=== PATIENT | female | born 1965 | race Caucasian/White ===

== ENCOUNTER → 2017-02-25 | Outpatient (CLI) | payer OTHER ==
[2017-02-25 12:20] LABS: HEMOGLOBIN 11.1 gm/dl (12.3-15.3); RED BLOOD COUNT 4.08 M/UL (4.00-5.10); WHITE BLOOD COUNT 5.4 K/UL (4.5-11.0)
== END ==
LOC: LAB 11:18
PROVIDERS: Internal Medicine Pulmonary Disease
DX: J45.40 Moderate persistent asthma, uncomplicated (principal)
CPT/HCPCS: 36415; 82785; 85025

== ENCOUNTER → 2017-02-25 | Outpatient (CLI) | payer OTHER | LOC: HEART 5 10:37 | DX: J45.40 Moderate persistent asthma, uncomplicated (principal) | CPT/HCPCS: 94010 ==

== ENCOUNTER → 2020-10-21 | Outpatient (CLI) | payer OTHER ==
[~2020-10-21] MED LIST: CYANOCOBAL1000 MCG/1 INJ; ELAVIL 10 MG TA10 MG PO; FLONASE ALLER15.8 ML; GLUCOPHAGE1000 MG PO; IPRAT-ALBUT 0.5-3 ML INH; ISORDIL TAB 3030 MG PO; LEVOCETIRIZINE D5 MG PO; MACROBID 100 M100 MG PO; MACRODANTIN100 MG PO; MUCINEX DM ER1 EAC1 PO; NORCO 5-325 TA1 EACH PO; RANEXA1000 MG PO; REGLAN5 MG PO; SINGULAIR10 MG PO; TOLTERODINE TART4 MG PO; TOPROL XL25 MG PO; TYLENOL 500 MG500 MG PO; VENTOLIN HFA 66.7 GM INH; VITAMIN D350 MC1 PO; WIXELA 250-501 EACH INH; XARELTO20 MG PO; ZANTAC150 MG PO; ZESTRIL30 MG PO; ZOCOR20 MG PO
[2020-10-21 12:36] LABS: HEMOGLOBIN 11.1 gm/dl (12.3-15.3); RED BLOOD COUNT 3.71 M/UL (4.00-5.10); WHITE BLOOD COUNT 4.7 K/UL (4.5-11.0)
== END ==
LOC: LAB 12:01
PROVIDERS: Nurse Practitioner Family
DX: M79.89 Other specified soft tissue disorders (principal)
CPT/HCPCS: 36415; 85025; 85379; 85610; 85730

== ENCOUNTER → 2020-10-25 | Outpatient (CLI) | payer OTHER | LOC: KOH-I 12:48 | DX: M79.662 Pain in left lower leg (principal); M79.89 Other specified soft tissue disorders | CPT/HCPCS: 93971 ==

== ENCOUNTER → 2021-02-28 | Outpatient (CLI) | payer OTHER | LOC: KOH-I 11:22 | DX: R79.89 Other specified abnormal findings of blood chemistry (principal) | CPT/HCPCS: 76775 ==

== ENCOUNTER → 2021-03-22 | Outpatient (CLI) | payer OTHER | LOC: US 13:51 | DX: R60.0 Localized edema (principal); M79.662 Pain in left lower leg | CPT/HCPCS: 93971 ==

== ENCOUNTER 2021-08-05 04:39 | Inpatient (IN) | payer OTHER ==
[~2021-08-05] VITALS: Ht 172.7 cm; Wt 144.7 kg
[~2021-08-05 04:39] MED LIST changes: +AMITRIPTYLINE H10 MG PO; -ELAVIL 10 MG TA10 MG PO; +ZESTRIL20 MG PO; -ZESTRIL30 MG PO
[2021-08-05 07:07] LABS: HEMOGLOBIN 14.2 gm/dl (12.3-15.3); RED BLOOD COUNT 5.01 M/UL (4.00-5.10); WHITE BLOOD COUNT 8.8 K/UL (4.5-11.0)
[2021-08-05 08:54] LABS: BUN/CREATININE RATIO 14 (0-10)
[2021-08-05] MEDS ORDERED: LORATADINE10 MG PO (11:57)
[2021-08-05] MEDS ORDERED: NITROFURANTOIN100 MG PO (11:58)
[2021-08-05] MEDS ORDERED: PANTOPRAZOLE SO20 MG PO (11:58)
[2021-08-05] MEDS ORDERED: NYSTATIN15 GM TP (11:59)
[2021-08-05] MEDS ORDERED: MECLIZINE HCL25 MG PO (11:59)
[2021-08-05] MEDS ORDERED: FUROSEMIDE20 MG PO (12:04)
[2021-08-05] MEDS ORDERED: BIOTIN2500 MCG PO (12:05)
[2021-08-05] MEDS ORDERED: POTASSIUM CHLO10 MEQ PO (12:05)
[2021-08-05] MEDS ORDERED: SIMETHICONE125 MG PO (12:06)
[2021-08-05] MEDS ORDERED: MUCINEX1200 MG PO (12:06)
--- NOTE | 2021-08-05 23:07 | NUR ---
2230:CALLED RADIOLOGY ABOUT STAT CHEST XRAY TO CONFIRM NG TUBE PLACEMENT. SHEET SORTER VERIFIED STAT ORDER AND STATED THEY WERE RUNNING BEHIND AND SHE WOULD TRY TO SEND IT OFF TO BE READ. NG TUBE CLAMPED AND NOT HOOKED UP TO SUCTION. AWAITING CHEST XRAY RESULTS.
[2021-08-06 06:28] LABS: HEMOGLOBIN 11.9 gm/dl (12.3-15.3); RED BLOOD COUNT 4.27 M/UL (4.00-5.10); WHITE BLOOD COUNT 4.9 K/UL (4.5-11.0)
[2021-08-07 06:47] LABS: HEMOGLOBIN 11.5 gm/dl (12.3-15.3); RED BLOOD COUNT 4.07 M/UL (4.00-5.10); WHITE BLOOD COUNT 4.8 K/UL (4.5-11.0)
[2021-08-07 07:09] LABS: BUN/CREATININE RATIO 13 (0-10)
== END 2021-08-08 13:45 | disposition home or self-care (01) | DRG 394 ==
LOC: ER1 04:39 → CDU 10:59 → MED SURG 4 10:59
PROVIDERS: Nurse Practitioner; Physician Assistant; ADMIT Internal Medicine
DX: K43.6 Other and unspecified ventral hernia with obstruction, without gangrene (principal); E87.2 Acidosis; Z68.42 Body mass index [BMI] 45.0-49.9, adult; Z20.822 Contact with and (suspected) exposure to COVID-19; E11.9 Type 2 diabetes mellitus without complications; E78.00 Pure hypercholesterolemia, unspecified; E66.01 Morbid (severe) obesity due to excess calories; I10 Essential (primary) hypertension; E78.5 Hyperlipidemia, unspecified; I25.10 Atherosclerotic heart disease of native coronary artery without angina pectoris; Z79.01 Long term (current) use of anticoagulants; Z79.899 Other long term (current) drug therapy; Z86.718 Personal history of other venous thrombosis and embolism; Z79.4 Long term (current) use of insulin; Z87.11 Personal history of peptic ulcer disease; Z91.040 Latex allergy status; Z90.49 Acquired absence of other specified parts of digestive tract; Z98.84 Bariatric surgery status; Z82.49 Family history of ischemic heart disease and other diseases of the circulatory system; Z83.3 Family history of diabetes mellitus; Z80.9 Family history of malignant neoplasm, unspecified
CPT/HCPCS: 36415; 71045; 80048; 80053; 81001; 82550; 82553; 82962; 83605; 83690; 84484; 85025; 87040; 93005; 94664; 94760; 96372; 96374; 96375; 99285; C9113; J0500; J2270; J2405; J2765; J7030; Q9967; U0002

== ENCOUNTER → 2021-11-18 | Outpatient (CLI) | payer OTHER ==
[~2021-11-18] MED LIST changes: +BIOTIN2500 MCG PO; +FUROSEMIDE20 MG PO; +LORATADINE10 MG PO; +MECLIZINE HCL25 MG PO; +MUCINEX1200 MG PO; +NITROFURANTOIN100 MG PO; +NYSTATIN15 GM TP; +PANTOPRAZOLE SO20 MG PO; +POTASSIUM CHLO10 MEQ PO; +SIMETHICONE125 MG PO
== END ==
LOC: KOH-I 13:56
DX: R23.0 Cyanosis (principal); I70.202 Unspecified atherosclerosis of native arteries of extremities, left leg
CPT/HCPCS: 93925

== ENCOUNTER → 2022-01-21 | Outpatient (CLI) | payer OTHER | LOC: EXRD 15:08 | DX: M79.605 Pain in left leg (principal) | CPT/HCPCS: 93971 ==

== ENCOUNTER 2022-03-26 15:18 | Emergency (ER) | payer OTHER ==
[2022-03-26 15:59] LABS: HEMOGLOBIN 11.2 gm/dl (12.3-15.3); RED BLOOD COUNT 3.92 M/UL (4.00-5.10); WHITE BLOOD COUNT 4.9 K/UL (4.5-11.0)
[2022-03-26 16:26] LABS: BUN/CREATININE RATIO 13 (0-10)
== END 2022-03-26 20:39 | disposition home or self-care (01) ==
LOC: ER1 15:18
PROVIDERS: Physician Assistant
DX: R60.0 Localized edema (principal); I25.10 Atherosclerotic heart disease of native coronary artery without angina pectoris; I10 Essential (primary) hypertension; E11.9 Type 2 diabetes mellitus without complications; Z91.040 Latex allergy status; Z51.81 Encounter for therapeutic drug level monitoring
CPT/HCPCS: 71045; 80053; 82550; 82553; 83880; 84484; 85025; 85610; 93005; 96374; 99284; J1940

== ENCOUNTER 2022-04-15 15:25 | Emergency (ER) | payer OTHER ==
[2022-04-15 16:56] LABS: HEMOGLOBIN 11.8 gm/dl (12.3-15.3); RED BLOOD COUNT 4.06 M/UL (4.00-5.10); WHITE BLOOD COUNT 5.3 K/UL (4.5-11.0)
[2022-04-15 17:17] LABS: BUN/CREATININE RATIO 15 (0-10)
[2022-04-15] MEDS ORDERED: LASIX 40 MG TAB40 MG PO (22:27)
[2022-04-15] MEDS ORDERED: K-TAB ER20 MEQ PO (22:27)
== END 2022-04-15 23:00 | disposition home or self-care (01) ==
LOC: ER1 15:25
PROVIDERS: Student in an Organized Health Care Education/Training Program
DX: I50.9 Heart failure, unspecified (principal)
CPT/HCPCS: 71045; 80053; 82550; 82553; 83880; 84484; 85025; 93005; 96374; 99285; J1940

== ENCOUNTER → 2022-05-01 | Outpatient (CLI) | payer OTHER ==
[~2022-05-01] MED LIST changes: +K-TAB ER20 MEQ PO; +LASIX 40 MG TAB40 MG PO
== END ==
LOC: KOH-I 04-29 08:30
DX: I65.23 Occlusion and stenosis of bilateral carotid arteries (principal); R14.0 Abdominal distension (gaseous); K76.0 Fatty (change of) liver, not elsewhere classified
CPT/HCPCS: 76700; 93880

== ENCOUNTER 2022-05-31 19:55 | Emergency (ER) | payer OTHER ==
[2022-05-31 20:28] LABS: HEMOGLOBIN 10.5 gm/dl (12.3-15.3); RED BLOOD COUNT 3.68 M/UL (4.00-5.10); WHITE BLOOD COUNT 3.4 K/UL (4.5-11.0)
[2022-05-31 20:49] LABS: BUN/CREATININE RATIO 11 (0-10)
[2022-06-01] MEDS ORDERED: OMNICEF 300 MG300 MG PO (01:31)
== END 2022-06-01 02:00 | disposition home or self-care (01) ==
LOC: ER1 19:55
PROVIDERS: Student in an Organized Health Care Education/Training Program
DX: U07.1 COVID-19 (principal); N39.0 Urinary tract infection, site not specified; I11.9 Hypertensive heart disease without heart failure; E11.9 Type 2 diabetes mellitus without complications; Z79.84 Long term (current) use of oral hypoglycemic drugs; J45.909 Unspecified asthma, uncomplicated
CPT/HCPCS: 0240U; 71045; 80053; 81001; 82550; 82553; 84484; 85025; 87077; 87086; 87186; 93005; 96361; 96374; 96375; 99285; J0696; J2765